=== PATIENT | female | born 1955 | race Caucasian/White ===

== ENCOUNTER → 2017-03-02 | Outpatient (REF) | payer OTHER | LOC: M LAB REF 19:00 | PROVIDERS: ATTEND Physician Assistant | DX: R19.7 Diarrhea, unspecified (principal) ==

== ENCOUNTER → 2017-03-30 | Outpatient (REF) | payer OTHER ==
[2017-03-30 19:40] LABS: PERCENT SATURATION 18.5 % (13.2-45.0)
== END ==
LOC: M LAB REF 16:41
PROVIDERS: ATTEND Internal Medicine
DX: D50.9 Iron deficiency anemia, unspecified (principal)

== ENCOUNTER → 2017-06-16 | Outpatient (REF) | payer OTHER | LOC: M LAB REF 12:56 | PROVIDERS: ATTEND Internal Medicine | DX: B37.3 Candidiasis of vulva and vagina (principal) ==

== ENCOUNTER → 2017-12-09 | Outpatient (REF) | payer OTHER ==
[2017-12-10 14:39] LABS: FERRITIN 140 NG/ML (8-252); IRON (FE) 54 UG/DL (50-170); PERCENT SATURATION 14.2 % (13.2-45.0); TOTAL IRON BINDING CAPACITY 380 UG/DL (250-450)
== END ==
LOC: M LAB REF 13:56
DX: D50.9 Iron deficiency anemia, unspecified (principal)

== ENCOUNTER → 2018-05-05 | Outpatient (REF) | payer BC ==
[2018-05-05 18:33] LABS: FERRITIN 196 NG/ML (8-252); IRON (FE) 61 UG/DL (50-170); PERCENT SATURATION 16.3 % (13.2-45.0); TOTAL IRON BINDING CAPACITY 374 UG/DL (250-450)
== END ==
LOC: M LAB REF 16:56
DX: D50.9 Iron deficiency anemia, unspecified (principal)
CPT/HCPCS: 83550

== ENCOUNTER → 2018-06-07 | Outpatient (REF) | payer BC ==
[2018-06-07 12:54] LABS: VITAMIN B12 LEVEL 433 PG/ML (247-911)
== END ==
LOC: M LAB REF 11:55
DX: D50.9 Iron deficiency anemia, unspecified (principal); E11.40 Type 2 diabetes mellitus with diabetic neuropathy, unspecified
CPT/HCPCS: 82607

== ENCOUNTER 2018-09-16 06:02 | Day surgery (SDC) | payer BC ==
[~2018-09-16] VITALS: Ht 170.2 cm; Wt 99.8 kg
[~2018-09-16 06:02] MED LIST: ALLE180T33 PO; DICY10CA13 PO; ESCI10TA2 PO; FERR325T3 PO; GABA-845 PO; LR 1,000 ML IV ONE; MAG-400T7 PO; MEDR10TA PO; METF500T13 PO
[2018-09-16] MEDS ORDERED: fentaNYL 100 MCG/2 ML INJECTION (J3010) As Ordered ONE (07:08)
[2018-09-16] MEDS ORDERED: LIDOCAINE 2% INJ 100 MG/5 ML SDV (FOR ANES.) As Ordered ONE (07:08)
[2018-09-16] MEDS ORDERED: PROPOFOL 200 MG/20 ML VIAL As Ordered ONE (07:08)
[2018-09-16] MEDS ORDERED: MIDAZOLAM INJ 2 MG/2 ML VIAL (J2250) As Ordered ONE (07:08)
[2018-09-16] MEDS ORDERED: SCOPOLAMINE 1MG TRANSDERMAL PATCH As Ordered ONE (07:20)
[2018-09-16] MEDS ORDERED: dexameTHASONE 4 MG/ML 1ML VIAL (J1100) As Ordered ONE (07:36)
[2018-09-16] MEDS ORDERED: ONDANSETRON 4MG/2ML VIAL (J2405) As Ordered ONE (07:37)
[2018-09-16] MEDS ORDERED: SCOPOLAMINE 1MG TRANSDERMAL PATCH TOP ONE (07:45)
[2018-09-16] MEDS ORDERED: ePHEDrine SULFATE 25 MG/5 ML(5MG/ML) SYRINGE As Ordered ONE (07:45)
[2018-09-16] MEDS ORDERED: METOCLOPRAMIDE INJ 10MG/2ML VIAL (J2765) As Ordered ONE (07:46)
[2018-09-16] MEDS ORDERED: KETOROLAC 60 MG/2 ML VIAL (J1885) As Ordered ONE (07:56)
[2018-09-16] MEDS ORDERED: IBUPROFEN 600 MG TAB PO PRN (08:45)
[2018-09-16] MEDS ORDERED: fentaNYL 100 MCG/2 ML INJECTION (J3010) IV PRN (08:45)
[2018-09-16] MEDS ORDERED: LR 1,000 ML IV SCH ×2 (08:45)
[2018-09-16] MEDS ORDERED: ONDANSETRON 4MG/2ML VIAL (J2405) IV PRN (08:45)
[2018-09-16] MEDS ORDERED: PERCOCET 5MG/325MG TAB PO PRN (08:45)
--- NOTE | 2018-09-16 09:10 | RO ---
DATE OF PROCEDURE: 09/16/2018 PREPROCEDURE DIAGNOSIS/INDICATION FOR SURGERY: LISA path, history of hyperplasia, postmenopausal bleeding. POSTPROCEDURE DIAGNOSIS: LISA path, history of hyperplasia, postmenopausal bleeding. PROCEDURE: Dilatation and curettage (D C), hysteroscopy, and MyoSure. SURGEON: Dr. Shea Florez WOOL PULLER: ANESTHESIA: Laryngeal mask airway (LMA). BRIEF DESCRIPTION OF PROCEDURE AND FINDINGS: Maureen was brought to the operating room where sufficient laryngeal mask airway (LMA) anesthesia was induced and she was prepped, draped and position in the usual sterile fashion. I would not placed the weighed speculum because she has marked atrophic changes so we used a [place] for some posterior retraction. We carefully emptied the bladder and then grasped the cervix with a single tooth tenaculum, sounded the uterus to 7 and then carefully dilated in order to allow the hysteroscope to be introduced. The MyoSure hysteroscope was then introduced and the endometrial cavity visualized. Left sided overgrowth was noted. The ostia on the right side is really normal in appearance and then a little bit past midline you see overgrowth of the endometrium, it is not tremendously vascular, but there is no definitely overgrowth there. This was resected with the MyoSure resectoscope. We did aggressive sampling. I did curettage where we had a normal uterine cry and the procedure was then ended. ESTIMATED BLOOD LOSS FOR PROCEDURE: Maybe 5 mL. FLUID REPLACEMENT: Crystalloid. COMPLICATIONS: None. DISPOSITION: Maureen tolerated the procedure well and was recovering in the recovery room in good condition.
[2018-09-16 09:55] VITALS: BP 162/78
== END 2018-09-16 10:10 | disposition home or self-care (01) ==
LOC: M SDC 06:02
PROVIDERS: ATTEND Obstetrics & Gynecology
DX: C54.1 Malignant neoplasm of endometrium (principal); E11.9 Type 2 diabetes mellitus without complications; K58.8 Other irritable bowel syndrome; F32.9 Major depressive disorder, single episode, unspecified; Z79.84 Long term (current) use of oral hypoglycemic drugs; Z79.899 Other long term (current) drug therapy; Z88.8 Allergy status to other drugs, medicaments and biological substances
CPT/HCPCS: 58558; 88305; J1100; J1885; J2250; J2405; J2765; J3010

== ENCOUNTER 2018-10-06 14:32 | Emergency (ER) | payer BC ==
[~2018-10-06] VITALS: Ht 170.2 cm; Wt 100.0 kg
[~2018-10-06 14:32] MED LIST changes: -LR 1,000 ML IV ONE
[2018-10-06] MEDS ORDERED: HEPA500011 SQ (14:56)
[2018-10-06] MEDS ORDERED: KETO30IN4 IV (14:56)
[2018-10-06] MEDS ORDERED: TYLE325T5 PO (14:56)
[2018-10-06] MEDS ORDERED: IBUPROFEN 800 MG TAB PO ONE (15:45)
--- NOTE | 2018-10-06 16:30 | REP ---
CT Head without contrast HISTORY: Injury COMPARISON: None Areas of decreased attenuation are present in the periventricular white matter. This represents small-vessel ischemic disease. There is no intraparenchymal hemorrhage, acute infarct, mass or midline shift. The ventricular system and cortical sulci are dilated consistent with minimal volume loss. There is no extra cerebral collection. There is no fracture. Mucosal thickening is present in the ethmoid and maxillary sinuses. IMPRESSION: 1. Small vessel ischemic disease. 2. Minimal volume loss. Electronically Signed by Charles Smith MD 10/06/2018 04:21 P
[2018-10-06 16:32] LABS: BASO % 0.3 % (0.0-1.0); EOS % 0.3 % (0.0-3.0); HEMATOCRIT 27.2 % (36.0-47.0); LYMPH # 1.2 10^3/uL (1.5-4.5); LYMPH % 10.4 % (24.0-44.0); MEAN CORPUSCULAR HGB CONC 33.1 g/dl (32.0-36.5); MEAN CORPUSCULAR VOLUME 87.7 fl (80.0-96.0); MONO % 8.1 % (0.0-5.0); NEUTROPHILS # 9.6 10^3/uL (1.8-7.7); NEUTROPHILS % 80.4 % (36.0-66.0); PLATELET COUNT, AUTOMATED 234 10^3/uL (150-450); WHITE BLOOD COUNT 11.9 10^3/uL (4.0-10.0)
[2018-10-06 16:41] LABS: CALCIUM LEVEL 8.1 MG/DL (8.8-10.2); CREATININE FOR GFR 1.25 MG/DL (0.55-1.30); GLOMERULAR FILTRATION RATE 45.9 (>45); POTASSIUM SERUM 3.9 MEQ/L (3.5-5.1)
[2018-10-06 16:44] LABS: INR 1.11; PROTHROMBIN TIME 14.4 SECONDS (12.1-14.4)
[2018-10-06 16:45] LABS: PARTIAL THROMBOPLASTIN TIME 27.5 SECONDS (25.4-37.6)
[2018-10-06] MEDS ORDERED: LIDOCAINE 1% MDV 20ML VIAL SC ONE (17:00)
[2018-10-06] MEDS ORDERED: NS 1,000 ML IV ONE (17:00)
--- NOTE | 2018-10-06 17:16 | REP ---
MAXILLOFACIAL CT WITHOUT CONTRAST: HISTORY: Injury. Minimal mucosal thickening is present in the ethmoid , maxillary and right sphenoid sinuses. The remaining sinuses are clear. The osteomeatal units are patent. The middle and inferior nasal turbinates are partially paradoxical. There is minimal deviation of the nasal septum to the left. The nasal septum abuts the left inferior nasal turbinate. The cribriform plate, medial mcginnis of the orbits and optic canals are intact. The carotid canals form a segment of the posterolateral mcginnis of the sphenoid sinus. Degenerative change is present in the temporomandibular joints. There is a fracture of the nasal bone. Soft tissue swelling is present. A defect is present in the soft tissue anterior to the maxilla. IMPRESSION:1. Sinus mucosal thickening as described above. 2. Nasal bone fracture. Electronically Signed by Charles Smith MD 10/07/2018 08:58 A
[2018-10-06] MEDS ORDERED: ROLLMIS2 XX ×2 (18:03→18:45)
[2018-10-06] MEDS ORDERED: ADACEL/BOOSTRIX VACCINE (DIPHTH/PERTUSS/ACELL/TETANUS)0.5ML SYR (90715) IM ONE (18:15)
[2018-10-06 18:35] VITALS: BP 142/71
== END 2018-10-06 18:40 | disposition home or self-care (01) ==
LOC: EDBD 14:32 → M ED 14:32
DX: S02.2XXA Fracture of nasal bones, initial encounter for closed fracture (principal); S01.511A Laceration without foreign body of lip, initial encounter; W18.39XA Other fall on same level, initial encounter; Y92.018 Other place in single-family (private) house as the place of occurrence of the external cause; E86.0 Dehydration; R79.9 Abnormal finding of blood chemistry, unspecified; R90.82 White matter disease, unspecified; I10 Essential (primary) hypertension; E11.9 Type 2 diabetes mellitus without complications; K58.9 Irritable bowel syndrome, unspecified; Z79.899 Other long term (current) drug therapy

== ENCOUNTER → 2018-11-03 | Outpatient (REF) | payer BC ==
[~2018-11-03] MED LIST changes: +HEPA500011 SQ; +KETO30IN4 IV; +ROLLMIS2 XX; +TYLE325T5 PO
== END ==
LOC: M LAB REF 12:36
PROVIDERS: ATTEND Internal Medicine
DX: D50.9 Iron deficiency anemia, unspecified (principal)

== ENCOUNTER → 2019-05-02 | Outpatient (REF) | payer BC | LOC: M LAB REF 12:16 | PROVIDERS: ATTEND Internal Medicine | DX: D50.9 Iron deficiency anemia, unspecified (principal) ==

== ENCOUNTER → 2019-09-01 | Outpatient (REF) | payer BC ==
[2019-09-01 15:17] LABS: PERCENT SATURATION 10.7 % (13.2-45.0)
== END ==
LOC: M LAB REF 14:12
PROVIDERS: ATTEND Internal Medicine
DX: D50.9 Iron deficiency anemia, unspecified (principal)

== ENCOUNTER → 2020-01-25 | Outpatient (CLI) | payer BC | LOC: M LABSMTC 11:34 | PROVIDERS: ATTEND Anesthesiology | DX: Z01.818 Encounter for other preprocedural examination (principal); Z11.59 Encounter for screening for other viral diseases | CPT/HCPCS: C9803; U0003 ==

== ENCOUNTER 2020-01-30 08:03 | Day surgery (SDC) | payer BC ==
[~2020-01-30] VITALS: Ht 170.2 cm; Wt 95.7 kg
[~2020-01-30 08:03] MED LIST changes: +LIDOCAINE 2% 100MG/5ML SDV (FOR ANES.) As Ordered ONE; +NS 1,000 ML IV ONE; +propofoL 200 MG/20 ML VIAL As Ordered ONE
--- NOTE | 2020-01-30 09:54 | ROOR ---
Patient Name: Maureen Marcos Procedure Date: 01/30/2020 9:26 AM Date of : 1955 Age: 64 Room: [facility] Gender: Female Note Status: Finalized Procedure: Total Colonoscopy to Cecum Indications: Colon cancer screening in patient at increased risk: Colorectal cancer in father Providers: Devan Barron MD Referring MD: Marianne Ruiz DO Requesting Provider: Medicines: Monitored Anesthesia Care Complications: No immediate complications. Procedure: Pre-Anesthesia Assessment: - The heart rate, respiratory rate, oxygen saturations, blood pressure, adequacy of pulmonary ventilation, and response to care were monitored throughout the procedure. The Colonoscope was introduced through the anus and advanced to the cecum, identified by appendiceal orifice and ileocecal valve. The colonoscopy was performed without difficulty. The patient tolerated the procedure well. The quality of the bowel preparation was excellent. Findings: The perianal and digital rectal examinations were normal. Non-bleeding internal hemorrhoids were found during retroflexion. The hemorrhoids were small and Grade I (internal hemorrhoids that do not prolapse). Multiple small and large-mouthed diverticula were found in the recto-sigmoid colon, sigmoid colon and descending colon. The exam was otherwise without abnormality on direct and retroflexion views. Impression: - Non-bleeding internal hemorrhoids. - Diverticulosis in the recto-sigmoid colon, in the sigmoid colon and in the descending colon. - The examination was otherwise normal on direct and retroflexion views. - No specimens collected. - The exam was otherwise normal to the cecum. Recommendation: - Patient has a contact number available for emergencies. The signs and symptoms of potential delayed complications were discussed with the patient. Return to normal activities tomorrow. Written discharge instructions were provided to the patient. - High fiber diet. - Discharge patient to home. - Continue present medications. - Repeat colonoscopy in 5 years for screening purposes. - Return to referring physician. - The findings and recommendations were discussed with the patient. Devan Barron MD Devan Barron MD 01/30/2020 9:54:51 AM Electronically signed by Devan Barron MD Number of Addenda: 0 Note Initiated On: 01/30/2020 9:26 AM Estimated Blood Loss: Estimated blood loss: none.
[2020-01-30 10:15] VITALS: BP 126/76
== END 2020-01-30 10:20 | disposition home or self-care (01) ==
LOC: M OPP 08:03
PROVIDERS: ATTEND Internal Medicine Gastroenterology
DX: Z12.11 Encounter for screening for malignant neoplasm of colon (principal); Z80.0 Family history of malignant neoplasm of digestive organs; K64.0 First degree hemorrhoids; K57.00 Diverticulitis of small intestine with perforation and abscess without bleeding

== ENCOUNTER → 2020-02-09 | Outpatient (REF) | payer BC ==
[~2020-02-09] MED LIST changes: -LIDOCAINE 2% 100MG/5ML SDV (FOR ANES.) As Ordered ONE; -NS 1,000 ML IV ONE; -propofoL 200 MG/20 ML VIAL As Ordered ONE
[2020-05-04 14:56] LABS: FERRITIN 108 NG/ML (8-252); IRON (FE) 59 UG/DL (50-170); TOTAL IRON BINDING CAPACITY 328 UG/DL (250-450)
== END ==
LOC: M LAB REF 18:21
PROVIDERS: ATTEND Internal Medicine
DX: D50.9 Iron deficiency anemia, unspecified (principal)

== ENCOUNTER 2020-05-01 12:33 | Emergency (ER) | payer BC ==
[~2020-05-01] VITALS: Ht 170.2 cm; Wt 100.9 kg
[2020-05-01] MEDS ORDERED: LIDOCAINE W/EPINEPHRINE 1% 20ML VIAL SC ONE (13:45)
--- NOTE | 2020-05-01 14:24 | REPVR ---
PROCEDURE INFORMATION: Exam: CT Head Without Contrast Exam date and time: 05/01/2020 1:58 PM Age: 64 years old Clinical indication: Pain; Headache; Additional info: Fall face forward, loc TECHNIQUE: Imaging protocol: Computed tomography of the head without contrast. Radiation optimization: All CT scans at this facility use at least one of these dose optimization techniques: automated exposure control; mA and/or kV adjustment per patient size (includes targeted exams where dose is matched to clinical indication); or iterative reconstruction. COMPARISON: CT Head without contrast 10/06/2018 4:01 PM FINDINGS: Brain: The brain demonstrates frontal lobe predominant cerebral volume loss. No hemorrhage or edema seen. Cerebral ventricles: The ventricles are mildly enlarged in keeping with volume loss. Bones/joints: No acute calvarial fracture seen. Paranasal sinuses: Visualized sinuses are unremarkable. No fluid levels. Mastoid air cells: Visualized mastoid air cells are well aerated. Soft tissues: Unremarkable. IMPRESSION: No acute intracranial abnormality seen. Electronically signed by: Toshia Lambert On 05/01/2020 14:24:26 PM
--- NOTE | 2020-05-01 14:29 | REPVR ---
PROCEDURE INFORMATION: Exam: CT Maxillofacial Without Contrast Exam date and time: 05/01/2020 1:58 PM Age: 64 years old Clinical indication: Face pain; Additional info: Fall face forward, lac, bruising, left eye TECHNIQUE: Imaging protocol: Computed tomography images of the face without contrast. Radiation optimization: All CT scans at this facility use at least one of these dose optimization techniques: automated exposure control; mA and/or kV adjustment per patient size (includes targeted exams where dose is matched to clinical indication); or iterative reconstruction. COMPARISON: CT Maxilofacial w/out contrast 10/06/2018 4:01 PM FINDINGS: Orbital cavity: Orbits are normal. Globes are unremarkable. Bones/joints: No acute fracture seen. The degenerative changes of the temporomandibular joints. Paranasal sinuses: Trace mucosal thickening in the inferior left maxillary sinus. No air-fluid levels. Soft tissues: Left periorbital cutaneous laceration. IMPRESSION: No facial bone fracture seen. Electronically signed by: Toshia Lambert On 05/01/2020 14:29:54 PM
--- NOTE | 2020-05-01 14:46 | REPVR ---
PROCEDURE INFORMATION: Exam: XR Left Ankle Exam date and time: 05/01/2020 2:15 PM Age: 64 years old Clinical indication: Injury or trauma; Fall; Sprain or strain; Ankle; Left; Additional info: Fall, tenderness TECHNIQUE: Imaging protocol: XR Left ankle. Views: 3 or more views. COMPARISON: No relevant prior studies available. FINDINGS: Bones/joints: No definite acute fracture. Seen on the AP view only is a small lucency in the most lateral aspect of the lateral malleolus, potentially a vascular groove. There is a corticated appearing fragment adjacent to the distal aspect of the lateral malleolus most likely representing an old avulsion fracture. Diffuse osseous demineralization. Ankle mortise alignment appears preserved. There are degenerative changes in the midfoot. Corticated Achilles and plantar spurs. Soft tissues: Mild medial soft tissue swelling. IMPRESSION: No acute fracture seen. Electronically signed by: Toshia Lambert On 05/01/2020 14:46:52 PM
--- NOTE | 2020-05-01 14:52 | REPVR ---
PROCEDURE INFORMATION: Exam: XR Left Knee Exam date and time: 05/01/2020 2:15 PM Age: 64 years old Clinical indication: Injury or trauma; Fall; Sprain or strain; Patella or knee; Left; Additional info: Fall, tenderness TECHNIQUE: Imaging protocol: XR Left knee. Views: 4 or more views. COMPARISON: No relevant prior studies available. FINDINGS: Bones/joints: Diffuse osseous demineralization. No acute fracture seen. 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 The patella appears laterally displaced, suspicious for acute dislocation although a component of degenerative subluxation also possible. Soft tissues: Anteromedial soft tissue swelling. IMPRESSION: 1. Lateral displacement of the patella, age indeterminate, potentially represents acute dislocation. MRI of the left knee may be obtained for further evaluation, in particular to assess the patellar retinaculum. 2. No acute fracture seen. Electronically signed by: Toshia Lambert On 05/01/2020 14:52:09 PM
[2020-05-01 15:20] VITALS: BP 162/81
== END 2020-05-01 16:29 | disposition home or self-care (01) ==
LOC: M ED 12:33
DX: S01.81XA Laceration without foreign body of other part of head, initial encounter (principal); S80.212A Abrasion, left knee, initial encounter; S83.005A Unspecified dislocation of left patella, initial encounter; W01.198A Fall on same level from slipping, tripping and stumbling with subsequent striking against other object, initial encounter; Y92.9 Unspecified place or not applicable; Y99.0 Civilian activity done for income or pay; E11.9 Type 2 diabetes mellitus without complications; Z88.8 Allergy status to other drugs, medicaments and biological substances; Z88.6 Allergy status to analgesic agent; Z91.048 Other nonmedicinal substance allergy status; Z79.84 Long term (current) use of oral hypoglycemic drugs; Z79.899 Other long term (current) drug therapy

== ENCOUNTER → 2020-08-16 | Outpatient (REF) | payer BC ==
[~2020-08-16] MED LIST changes: +ESCI10TA16 PO; -ESCI10TA2 PO
[2020-08-17 13:46] LABS: PERCENT SATURATION 25.1 % (13.2-45.0)
== END ==
LOC: M LAB REF 12:01
PROVIDERS: ATTEND Internal Medicine
DX: D50.9 Iron deficiency anemia, unspecified (principal)

== ENCOUNTER → 2020-09-27 | Outpatient (CLI) | payer BC ==
--- NOTE | 2020-09-27 09:09 | DEXAMM ---
INDICATION: R29.890 LOSS OF HEIGHT. COMPARISON: None. TECHNIQUE: Bone density was measured using dual-energy x-ray absorptionmetry (DEXA). FINDINGS: AP SPINE L1-L4 BMD 1.716 g/cm2 Young Adult T-Score 4.2 Age Matched Z-Score 5.8. LT FEMUR, TOTAL BMD 1.103 g/cm2 Young Adult T-Score 0.8 Age Matched Z-Score 2.0. LT NECK BMD 1.039 g/cm2 Young Adult T-Score 0.0 Age Matched Z-Score 1.5. RT FEMUR, TOTAL BMD 1.092 g/cm2 Young Adult T-Score 0.6 Age Matched Z-Score 1.9. RT NECK BMD 1.080 g/cm2 Young Adult T-Score 0.3 Age Matched Z-Score 1.8. IMPRESSION: There is normal bone density of the spine. There is normal bone density of the left hip. There is normal bone density of the right hip. FOLLOW-UP: Recommendation for the next bone density exam: 5 years. <Electronically signed by Yayo Bernabe > 09/27/20 [id number]
== END ==
LOC: M WHC 08:07
PROVIDERS: ATTEND Obstetrics & Gynecology
DX: R29.890 Loss of height (principal)

== ENCOUNTER → 2021-03-11 | Outpatient (REF) | payer BC ==
[~2021-03-11] MED LIST changes: +GABA-283 PO; -GABA-845 PO
[2021-03-11 18:09] LABS: PERCENT SATURATION 12.8 % (13.2-45.0)
[2021-03-12 18:57] LABS: ATYPICAL LYMPH 1 % (0-5); BASOPHILS 2 % (0-1); EOSINOPHILS 5 % (0-3); LYMPHOCYTES 20 % (16-44); MONOCYTES 3 % (0-5); NEUTROPHILS 67 % (28-66)
[2021-03-12 18:59] LABS: HYPOCHROMASIA 1+; PLATELET ESTIMATE NORMAL (NORMAL)
== END ==
LOC: M LAB REF 16:35
PROVIDERS: ATTEND Internal Medicine
DX: D50.9 Iron deficiency anemia, unspecified (principal)